=== PATIENT | male | born 1945 | race Caucasian/White ===

== ENCOUNTER 2018-07-22 20:32 | Emergency (ER) | payer BC, OTHER ==
--- NOTE | 2018-07-22 20:34 | PDOC ---
History of Present Illness - General History Source: Patient Exam Limitations: No Limitations - History of Present Illness Initial Comments: 07/22/18 21:09 A portion of this note was documented by scribe services under my direction. I have reviewed the details of the note, within reason, and agree with the documentation. The case summary and management plan written by me. Assessment plan: This is 73-year-old male who comes in complaining that he swallowed his bridge while eating dinner tonight. Patient has an sensation that was stuck in his lower esophagus. Patient was able to handle his secretions and able to swallow liquids but had not tried to swallow solids. Patient was given some crackers to eat here in the emergency room and they were able to pass into his stomach without difficulty when they passed into his stomach he then felt the foreign body sensation resolved and had no more discomfort. A chest x-ray was done and the foreign body was not visible on chest x-ray as there is no metallic component to it as per patient. Patient discharged home was told to follow-up with his doctor as he was concerned that if there was any trauma to his intestine lines he is on a blood thinner and was concerned that he could develop bleeding. <Roldan Vernon I - Last Filed: 07/22/18 21:09> - History of Present Illness Initial Comments: 07/22/18 21:30 The patient is a 73 year old male, with no significant PMH, who presents to the emergency department complaining of swallowing his bridge while eating dinner tonight. The patient notes a discomfort located to the lower esophagus but states he is able to swallow fluids and secretions. The patient reports he has not tried swallowing any solids. The patient denies any denies chest pain, shortness of breath, headache and dizziness. PAST MEDICAL HISTORY: no significant history PAST SURGICAL HISTORY: no significant history FAMILY HISTORY: no pertinent history SOCIAL HISTORY: Pt lives with family and is employed. MEDICATIONS: reviewed ALLERGIES: As per nursing notes Adult ROS General: No fevers or chills, no weakness, no weight loss HEENT: No change in vision. No sore throat,. No ear pain CardioVascular: No chest pain or shortness of breath Respiratory:No cough, or wheezing. Gastrointestinal: no nausea, vomiting, diarrhea or constipation, No rectal bleeding Genitourinary: No dysuria, hematuria, or frequency Musculoskeletal: No joint or muscle pain or swelling Neurologic: No headache, vertigo, dizziness or loss of consciousness Psychiatric: nor depression Skin: No rashes or easy bruising Endocrine: no increased thirst or abnormal weight change Allergic: no skin or latex allergy All other systems reviewed and normal Basic PE GENERAL: The patient is awake, alert, and fully oriented, in no acute distress. HEAD: Normal with no signs of trauma. EYES: Pupils equal, round and reactive to light, extraocular movements intact, sclera anicteric, conjunctiva clear. MOUTH: + 2 bottom teeth absent where 2 teeth from the bridges would of been but he is able to swallow secretion. EXTREMITIES: Normal range of motion, no edema. NEUROLOGICAL: Normal speech, normal gait. PSYCH: Normal mood, normal affect. SKIN: Warm, Dry, normal turgor, no rashes or lesions noted. <Samira Quiroz - Last Filed: 07/22/18 21:33> - General Chief Complaint: Foreign Body (FB) Stated Complaint: SWALLOWED HIS BRIDGE Time Seen by Provider: 07/22/18 20:33 Past History <Roldan Vernon I - Last Filed: 07/22/18 21:09> <Samira Quiroz - Last Filed: 07/22/18 21:33> - Past Medical History Allergies/Adverse Reactions: Allergies Allergy/AdvReac Type Severity Reaction Status Date / Time No Known Allergies Allergy Verified 07/22/18 20:33 Home Medications: Ambulatory Orders Aspirin 81 mg PO DAILY 07/22/18 Metoprolol Tartrate 25 mg PO BID 07/22/18 Prasugrel HCl 10 mg PO DAILY 07/22/18 Rosuvastatin Calcium [Crestor] 10 mg PO DAILY 07/22/18 *Physical Exam - Vital Signs Last Vital Signs Temp Pulse Resp BP Pulse Ox 98.3 F 50 L 16 147/88 100 07/22/18 20:36 07/22/18 20:36 07/22/18 20:36 07/22/18 20:36 07/22/18 20:36 <Samira Quiroz - Last Filed: 07/22/18 21:33> *DC/Admit/Observation/Transfer - Discharge Dispostion Decision to Admit order: No <Roldan Vernon I - Last Filed: 07/22/18 21:09> - Attestations Scribe Attestion: 07/22/18 21:32 Documentation prepared by Samira Quiroz, acting as medical claims examiner for Roldan Vernon MD. <RichieSamira - Last Filed: 07/22/18 21:33> Diagnosis at time of Disposition: Foreign body, swallowed Qualifiers: Encounter type: initial encounter Qualified Code(s): T18.9XXA - Foreign body of alimentary tract, part unspecified, initial encounter - Discharge Dispostion Disposition: HOME Condition at time of disposition: Stable - Patient Instructions Additional Instructions: Review return to the ER or see her primary care doctor if you develop any dark or tarry stools, any rectal bleeding, any abdominal discomfort or pain. The Bridge's should pass without difficulty however if you want to get it back he will have to check your stools until it passes it usually takes 2-4 days. Return to the emergency department immediately with ANY new, persistent or worsening symptoms. Continue any medications as previously prescribed by your physician. You should follow up with your primary doctor as soon as possible regarding today's emergency department visit. . Please make sure your doctor reviews the results of your emergency evaluation. Thank you for coming to the Emergency Department today for your care. It was a pleasure to see you today. Please note that your evaluation is INCOMPLETE until you follow-up with your doctor.
[2018-07-22 20:39] VITALS: BP 147/88; PULSE 50; TEMP 98.3; BMI 24.4
== END 2018-07-22 21:26 | disposition home or self-care (01) ==
LOC: FER 20:32
DX: T18.9XXA Foreign body of alimentary tract, part unspecified, initial encounter (principal); X58.XXXA Exposure to other specified factors, initial encounter; Y93.89 Activity, other specified; Y92.9 Unspecified place or not applicable
CPT/HCPCS: 71046-TC-FY; 99281-25